=== PATIENT | male | born 1950 | race African-American/Black ===

== ENCOUNTER 2016-07-30 08:18 | Day surgery (SDC) | payer BC ==
[2016-07-30] MEDS ORDERED: TETRACAINE 0.5% OPHTH 1 DOSE AFFEYE ONE ×3 (09:50→13:47)
[2016-07-30] MEDS ORDERED: VIGAMOX 0.5% OPHTH 1 DOSE AFFEYE ONE ×7 (09:51→14:01)
[2016-07-30] MEDS ORDERED: PROLENSA OPHTH 1 DOSE AFFEYE ONE (10:12)
[2016-07-30] MEDS ORDERED: ALPHAGAN-P OPHTH 1 DOSE AFFEYE ONE (10:13)
[2016-07-30] MEDS ORDERED: CYCLOGYL 1% OPHTH 1 DOSE OP ONE ×4 (10:14→10:17)
[2016-07-30] MEDS ORDERED: MYDRIACIL OPHTH 1 DOSE AFFEYE ONE ×4 (10:14→10:17)
[2016-07-30] MEDS ORDERED: AK-DILATE 2.5% OPHTH 1 DOSE OP ONE ×4 (10:14→10:17)
[2016-07-30] MEDS ORDERED: NS 500 ML IV 500 ML IV ONE (10:41)
[2016-07-30] MEDS ORDERED: BETADINE OPHTH SOLN 5% EACHEYE ONE (13:35)
[2016-07-30] MEDS ORDERED: DUOVISC IO ONE (13:47)
[2016-07-30] MEDS ORDERED: XYLOCAINE-MPF 1% IJ ONE (13:47)
[2016-07-30] MEDS ORDERED: ADRENALINE CHL INJ IJ ONE (13:47)
[2016-07-30] MEDS ORDERED: BSS OPHTH (PLAIN) 500 ML with VANCOMYCIN HCL 500 MG VIAL 25 MG, ADRENALINE CHL INJ 1 MG IR ONE ×3 (13:47)
[2016-07-30 16:10] VITALS: BP 135/82
== END 2016-07-30 14:25 | disposition home or self-care (01) ==
LOC: SURG1 08:18
PROVIDERS: ATTEND Ophthalmology
PROC: 08RK3JZ Replacement of Left Lens with Synthetic Substitute, Percutaneous Approach (ICD-10-PCS; principal; 2016-07-30 19:15)
PROC: 08DK3ZZ Extraction of Left Lens, Percutaneous Approach (ICD-10-PCS; principal; 2016-07-30 19:15)
DX: H25.12 Age-related nuclear cataract, left eye (principal); H25.012 Cortical age-related cataract, left eye; H25.042 Posterior subcapsular polar age-related cataract, left eye; H52.222 Regular astigmatism, left eye
CPT/HCPCS: A4217; J0170; J3370

== ENCOUNTER 2016-08-13 08:15 | Day surgery (SDC) | payer BC ==
[2016-08-13] MEDS ORDERED: NS 500 ML IV 500 ML IV ONE (09:05)
[2016-08-13] MEDS ORDERED: TETRACAINE 0.5% OPHTH 1 DOSE AFFEYE ONE ×4 (09:15→11:35)
[2016-08-13] MEDS ORDERED: VIGAMOX 0.5% OPHTH 1 DOSE AFFEYE ONE ×5 (09:16→11:49)
[2016-08-13] MEDS ORDERED: PROLENSA OPHTH 1 DOSE AFFEYE ONE (09:27)
[2016-08-13] MEDS ORDERED: ALPHAGAN-P OPHTH 1 DOSE AFFEYE ONE (09:28)
[2016-08-13] MEDS ORDERED: CYCLOGYL 1% OPHTH 1 DOSE OP ONE ×2 (09:30→09:32)
[2016-08-13] MEDS ORDERED: MYDRIACIL OPHTH 1 DOSE AFFEYE ONE ×2 (09:30→09:32)
[2016-08-13] MEDS ORDERED: AK-DILATE 2.5% OPHTH 1 DOSE OP ONE ×2 (09:30→09:32)
[2016-08-13] MEDS ORDERED: BETADINE OPHTH SOLN 5% EACHEYE ONE (11:22)
[2016-08-13] MEDS ORDERED: XYLOCAINE-MPF 1% IJ ONE ×2 (11:29→11:35)
[2016-08-13] MEDS ORDERED: ADRENALINE CHL INJ IJ ONE ×2 (11:29→11:35)
[2016-08-13] MEDS ORDERED: DUOVISC IO ONE ×2 (11:29→11:35)
[2016-08-13] MEDS ORDERED: BSS OPHTH (PLAIN) 500 ML with VANCOMYCIN HCL 500 MG VIAL 25 MG, ADRENALINE CHL INJ 1 MG IR ONE ×3 (11:35)
[2016-08-13 12:59] VITALS: BP 155/93
== END 2016-08-13 12:15 | disposition home or self-care (01) ==
LOC: SURG1 08:15
PROVIDERS: ATTEND Ophthalmology
PROC: 08DJ3ZZ Extraction of Right Lens, Percutaneous Approach (ICD-10-PCS; principal; 2016-08-13 14:15)
PROC: 08RJ3JZ Replacement of Right Lens with Synthetic Substitute, Percutaneous Approach (ICD-10-PCS; principal; 2016-08-13 14:15)
DX: H25.11 Age-related nuclear cataract, right eye (principal); H25.011 Cortical age-related cataract, right eye; H52.221 Regular astigmatism, right eye
CPT/HCPCS: A4217; J0170; J3370